=== PATIENT | male | born 2005 | race Hispanic/Latino ===

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

== ENCOUNTER 2023-12-28 22:19 | Emergency (ER) | payer BC ==
[2023-12-28 22:43] LABS: Bilirubin Negative (Negative); Blood, Urine Negative (Negative); CAUTI Indications for Culture Dysuria,urgency,freq; Clarity Clear (Clear); Glucose, Urine (Dipstick) Normal (Negative); Ketone, Urine 10 mg/dL (Negative); Leukocyte 25 Leu/uL (Negative); Nitrite Negative (Negative); Protein, Urine (Dipstick) Negative (Neg-Trace); RBC/HPF 0-3 HPF (0-3); Specific Gravity, Urine 1.017 (1.002-1.036); Squamous Epithelial None Seen HPF (0-3); Urobilinogen Normal mg/dL (Less than 2)
[2023-12-28 22:53] LABS: Bacteria/HPF Rare-Few HPF (None Seen)
[2023-12-28 22:55] LABS: Urine Culture Reflex No No
[2023-12-29 13:12] LABS: Chlam.trachomatis by PCR,Urine DETECTED (NotDetected); GC N.gonorrhoeae PCR,UrineVOID Not Detected (NotDetected)
== END 2023-12-28 23:05 | disposition home or self-care (01) ==
LOC: ERS 22:19
DX: N39.0 Urinary tract infection, site not specified (principal); F17.290 Nicotine dependence, other tobacco product, uncomplicated; Z20.2 Contact with and (suspected) exposure to infections with a predominantly sexual mode of transmission
CPT/HCPCS: 81001; 87491; 87591; 99283

== ENCOUNTER 2025-02-16 01:14 | Emergency (ER) | payer BC | END 2025-02-16 02:25 | disposition home or self-care (01) | LOC: ERS 01:14 | DX: L02.511 Cutaneous abscess of right hand (principal); F17.290 Nicotine dependence, other tobacco product, uncomplicated | CPT/HCPCS: 99282 ==